=== PATIENT | female | born 1980 | race American Indian/Alaskan Native ===

== ENCOUNTER 2018-03-26 10:45 | Emergency (ER) | payer OTHER ==
[2018-03-26] MEDS ORDERED: NA CHLORIDE 0.9% 1,000 ML ONE (12:16)
[2018-03-26 12:37] LABS: Absolute Monocytes 0.5 K/uL (0.1-1.3); Absolute Neutrophil 2.6 K/uL (1.8-8.0); Basophils % 0.4 % (0-1.3); Eosinophils % 2.3 % (0-4.4); Hematocrit 39.3 % (36.0-45.0); Lymphocytes % 23.1 % (15.3-44.8); MCH 32.4 pg (27.0-35.0); MCV 92.1 fL (80-100); MPV 8.5 fL (7.6-11.3); Monocytes % 11.3 % (3.3-12.3); RBC Red Blood Cell Count 4.26 M/uL (3.86-4.86)
[2018-03-26 12:51] LABS: ALT/SGPT 35 U/L (12-78); AST/SGOT 28 U/L (15-37); Albumin 3.9 g/dL (3.4-5.0); Alkaline Phosphatase 49 U/L (45-117); BUN Blood Urea Nitrogen 9 mg/dL (7-18); Bicarbonate 26 mmol/L (21-32); Bilirubin Direct < 0.1 mg/dL (0-0.2); Bilirubin Total 0.3 mg/dL (0.2-1.0); Glucose Level 100 mg/dL (74-106); Lipase 146 U/L (73-393); Potassium 3.9 mmol/L (3.5-5.1); Protein, Total 7.9 g/dL (6.4-8.2); Sodium Level 141 mmol/L (136-145)
--- NOTE | 2018-03-26 15:51 | RAD REPORT ---
EXAM DESCRIPTION: CTAbdomen Pelvis W Contrast - 03/26/2018 3:43 pm CLINICAL HISTORY: Abdominal pain. Abd pain;GI bleed COMPARISON: <Comparisons> TECHNIQUE: Biphasic CT imaging of the abdomen and pelvis was performed with 100 ml non-ionic IV cont rast. All CT scans are performed using dose optimization technique as appropriate and may include automated exposure control or mA/KV adjustment according to patient size. FINDINGS: The lung bases are clear. The liver, spleen, pancreas, adrenal glands and kidneys are within normal limits. No bowel obstruction, free air, free fluid or abscess. The appendix is normal. No evidence of signi ficant lymphadenopathy. No suspicious bony findings. IMPRESSION: No acute intra-abdominal or pelvic finding.
--- NOTE | 2018-03-26 16:13 | EDPHYS ---
Physician Documentation [facility] Name: Ej Rivas Age: 37 yrs Sex: Female : 1980 Arrival Date: 03/26/2018 Time: 10:47 Bed 7 Private MD: ED Physician Eriberto Land HPI: 03/26 11:50 This 37 yrs old Other Female presents to ER via Ambulatory with complaints of Bloody rh1 Stools. 11:50 The patient presents with abdominal pain that is diffuse. Onset: The symptoms/episode rh1 began/occurred 3 day(s) ago. The symptoms do not radiate. Associated signs and symptoms: Pertinent positives: diarrhea, fever, Pertinent negatives: constipation, dysuria, shortness of breath, vomiting. The symptoms are described as achy, intermittent. Modifying factors: The symptoms are alleviated by nothing, the symptoms are aggravated by food. Severity of pain: At its worst the pain was moderate in the emergency department the pain is unchanged. The patient has not experienced similar symptoms in the past. The patient has not recently seen a physician. She began with diarrhea 3 days ago, up to 20+ episodes, without any today. Intermittent abdominal pain for the past 3 days, overall improved today. She reports + nausea, denies any emesis. She was seen at with onset of symptoms, and had stool studies ordered, which showed + occult blood, and was told today to come to ER for evaluation. She denies seeing any blood in stools, reports initially was brown, and now watery. Fever at 101.4 yesterday, and also noted "hives" yesterday. She had taken a pill earlier that day for her diarrhea, "biofermin" from [place], has taken it in the past without negative reaction. 5 days ago she ate at the [employer], unknown if anyone else with similar symptoms. She denies any SOB, difficulty swallowing, no dizziness/syncope.. 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 - Social history:: Smoking status: Patient/guardian denies using tobacco. - Ebola Screening: : Patient negative for fever greater than or equal to 101.5 degrees Fahrenheit, and additional compatible Ebola Virus Disease symptoms Patient denies exposure to infectious person Patient denies travel to an Ebola-affected area in the 21 days before illness onset No symptoms or risks identified at this time. ROS: 11:50 Cardiovascular: Negative for chest pain, palpitations, and edema, Respiratory: Negative rh1 for shortness of breath, cough, wheezing, and pleuritic chest pain. 11:50 Constitutional: Positive for fever. 11:50 Abdomen/GI: Positive for abdominal pain, nausea, diarrhea, Negative for vomiting, constipation. 11:50 Back: Negative for decreased range of motion, pain at rest, pain with movement, radiated pain. 11:50 Skin: Positive for rash, not ongoing at this time, Negative for cellulitis. 11:50 Neuro: Negative for altered mental status, numbness, syncope, near syncope, tingling, weakness. Exam: 11:50 Constitutional: This is a well developed, well nourished patient who is awake, alert, rh1 and in no acute distress. Head/Face: Normocephalic, atraumatic. Neck: Trachea midline, and no cervical lymphadenopathy. Supple, full range of motion without nuchal rigidity. No Meningismus. Chest/axilla: Normal chest wall appearance and motion. Nontender with no deformity. No lesions are appreciated. Cardiovascular: Regular rate and rhythm with a normal S1 and S2. No gallops, murmurs, or rubs. No JVD. No pulse deficits. Respiratory: Lungs have equal breath sounds bilaterally, clear to auscultation. No rales, rhonchi or wheezes noted. No increased work of breathing. 11:50 Back: No spinal tenderness. No costovertebral tenderness. Full range of motion. Skin: Warm, dry with normal turgor. Normal color with no rashes, no lesions, and no evidence of cellulitis. MS/ Extremity: Pulses equal, no cyanosis. Neurovascular intact. Full, normal range of motion. 11:50 Abdomen/GI: Inspection: abdomen appears normal, bruising, is not seen, distension, is not seen, Bowel sounds: normal, in all quadrants, active, all quadrants, Palpation: abdomen is soft and non-tender, in all quadrants, Rectal exam: Stool: guaiac negative, very minimal stool for guiac, hemorrhoid(s), are not appreciated, mass, is not appreciated, swelling, is not appreciated, tenderness, is not appreciated, Indicators: McBurney's point is not tender, Shell's sign is negative, Rovsing's sign is negative, Liver: no appreciated palpable abnormalities. 11:50 Neuro: Orientation: is normal, to person, place \\T\\ time. Mentation: is normal, lucid, able to follow commands, Motor: is normal, moves all fours, strength is 5/5 in all extremities, Sensation: is normal, no obvious gross deficits, numbness, is not appreciated, tingling, is not appreciated, Gait: is steady, at a normal pace, without difficulty. Vital Signs: 11:21 BP 111 / 70; Pulse 87; Resp 16; Temp 97.9; Pulse Ox 100% ; Weight 55 kg (R); Height 5 sg ft. 1 in. (155 cm) (R); Pain 0/10; 16:04 BP 116 / 71; Pulse 74; Resp 16; Pulse Ox 98% on R/A; la1 11:21 Body Mass Index 22.89 (55.00 kg, 155 cm) sg MDM: 11:50 Patient medically screened. rh1 11:50 ED course: occult blood positive. rh1 16:10 Data reviewed: vital signs, nurses notes, lab test result(s), radiologic studies, CT rh1 scan, and as a result, I will discharge patient. Data interpreted: Pulse oximetry: on room air is 98 %. Interpretation: normal. 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 ED course: She has had no further episodes of abdominal pain, and no diarrhea today. Pending stool ova/parasites and culture, c.diff. 03/26 12:07 Order name: Basic Metabolic Panel; Complete Time: 12:52 rh1 03/26 12:07 Order name: CBC with Diff; Complete Time: 12:47 rh1 03/26 12:07 Order name: Creatinine for Radiology; Complete Time: 14:08 [facility] 03/26 12:07 Order name: Hepatic Function; Complete Time: 12:52 1 03/26 12:07 Order name: Lipase; Complete Time: 12:52 03/26 12:07 Order name: Guiac [facility] 03/26 12:07 Order name: IV Saline Lock; Complete Time: 12:20 1 03/26 12:07 Order name: Labs collected and sent; Complete Time: 12:20 [facility] 03/26 12:07 Order name: Urine Dipstick-Ancillary (obtain specimen); Complete Time: 12:25 [facility] 03/26 12:09 Order name: CDIFF [facility] 03/26 12:25 Order name: CT Abd/Pelvis - W/Contrast; Complete Time: 15:54 [facility] 03/26 12:26 Order name: Urine Dipstick--Ancillary (enter results) 03/26 12:26 Order name: Urine --Ancillary (enter results) eb 03/26 12:07 Order name: Urine Test (obtain specimen); Complete Time: 12:25 [facility] Administered Medications: 12:20 Drug: NS 0.9% 1000 ml Route: IV; Rate: 1 bolus; Site: left antecubital; la1 Disposition: 18:36 Co-signature as Attending Physician, Eriberto Land MD. Disposition: 03/26/18 16:13 Discharged to Home. Impression: Other abdominal pain, Diarrhea, unspecified. - Condition is Stable. - Discharge Instructions: Abdominal Pain, Adult, Food Choices to Help Relieve Diarrhea, Adult, Diarrhea, Adult. - Medication Reconciliation Form, Thank You Letter, Antibiotic Education, Prescription Opioid Use form. - Follow up: Vladimir Hale MD; When: 1 - 2 days; Reason: Further diagnostic work-up, Recheck today's complaints, Continuance of care. Follow up: Emergency Department; When: As needed; Reason: Fever > 102 F, If symptoms return, Trouble breathing, Worsening of condition. Follow up: Private Physician; When: 1 - 2 days; Reason: Recheck today's complaints, Continuance of care, Re-evaluation by your physician. - Problem is new. - Symptoms have improved. Signatures: Dispatcher [employer] Robert Enciso RN RN Marlin Hernandez RN RN Hola Smith, RN RN la1 Kathy Roldan, CATERING TRUCK OPERATOR CATERING TRUCK OPERATOR rh1 Eriberto Land MD MD gs Corrections: (The following items were deleted from the chart) 16:48 16:13 03/26/2018 16:13 Discharged to Home. Impression: Other abdominal pain; Diarrhea, iw unspecified. Condition is Stable. Forms are Medication Reconciliation Form, Thank You Letter, Antibiotic Education, Prescription Opioid Use. Follow up: Vladimir Hale; When: 1 - 2 days; Reason: Further diagnostic work-up, Recheck today's complaints, Continuance of care. Follow up: Emergency Department; When: As needed; Reason: Fever > 102 F, If symptoms return, Trouble breathing, Worsening of condition. Follow up: Private Physician; When: 1 - 2 days; Reason: Recheck today's complaints, Continuance of care, Re-evaluation by your physician. Problem is new. Symptoms have improved. rh1
--- NOTE | 2018-03-26 16:13 | ER ---
Nurse's Notes [facility] Name: Ej Rivas Age: 37 yrs Sex: Female : 1980 Arrival Date: 03/26/2018 Time: 10:47 Bed 7 Private MD: Diagnosis: Other abdominal pain;Diarrhea, unspecified Presentation: 03/26 11:19 Presenting complaint: Patient states: Diarrhea for 2-3 days and had the stool tested by sg her doctor, test positive for blood so is sent here to be seen for blood in stool. pt reports fever yesterday morning but none since then, reports no diarrhea today, denies N/V/D. Transition of care: patient was not received from another setting of care. Onset of symptoms was March 26, 2018. Risk Assessment: Do you want to hurt yourself or someone else? Patient reports no desire to harm self or others. Initial Sepsis Screen: Does the patient meet any 2 criteria? No. Patient's initial sepsis screen is negative. Does the patient have a suspected source of infection? No. Patient's initial sepsis screen is negative. Care prior to arrival: None. 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 - Social history:: Smoking status: Patient/guardian denies using tobacco. - Ebola Screening: : Patient negative for fever greater than or equal to 101.5 degrees Fahrenheit, and additional compatible Ebola Virus Disease symptoms Patient denies exposure to infectious person Patient denies travel to an Ebola-affected area in the 21 days before illness onset No symptoms or risks identified at this time. Screenin:01 Abuse screen: Denies threats or abuse. Nutritional screening: No deficits noted. la1 Tuberculosis screening: No symptoms or risk factors identified. Fall Risk None identified. Assessment: 12:05 General: Appears in no apparent distress. Behavior is calm, cooperative. Pain: Denies la1 pain. Neuro: Level of Consciousness is awake, alert, obeys commands, Oriented to person, place, time, situation. Cardiovascular: Capillary refill < 3 seconds Patient's skin is warm and dry. Respiratory: Airway is patent Respiratory effort is even, unlabored. GI: Abdomen is round non-distended, Bowel sounds present X 4 quads. GI: Abd is soft and non tender X 4 quads. : No signs and/or symptoms were reported regarding the genitourinary system. 13:05 Reassessment: Patient appears in no apparent distress at this time. No changes from la1 previously documented assessment. Patient and/or family updated on plan of care and expected duration. Pain level reassessed. 15:26 Reassessment: Patient appears in no apparent distress at this time. No changes from la1 previously documented assessment. Patient and/or family updated on plan of care and expected duration. Pain level reassessed. Vital Signs: 11:21 BP 111 / 70; Pulse 87; Resp 16; Temp 97.9; Pulse Ox 100% ; Weight 55 kg (R); Height 5 sg ft. 1 in. (155 cm) (R); Pain 0/10; 16:04 BP 116 / 71; Pulse 74; Resp 16; Pulse Ox 98% on R/A; la1 11:21 Body Mass Index 22.89 (55.00 kg, 155 cm) sg ED Course: 10:47 Patient arrived in ED. mr 10:53 Kathy Roldan NP is PHCP. rh1 10:53 Eriberto Land MD is Attending Physician. rh1 11:20 Triage completed. sg 11:20 Arm band placed on. sg 11:41 Hola Marie, RN is Primary Nurse. la1 12:01 Bed in low position. Call light in reach. Side rails up X 1. la1 12:04 Served as a sprayer insecticide during rectal exam. aj 12:20 Inserted saline lock: 22 gauge in left antecubital area, using aseptic technique. Blood la1 collected. 15:43 CT completed. Patient tolerated procedure well. Patient moved to CT via stretcher. Patient moved back from CT. 15:43 CT Abd/Pelvis - W/Contrast In Process Unspecified. EDMS 16:12 Vladimir aHle MD is Referral Physician. rh1 16:48 IV discontinued, intact, bleeding controlled, No redness/swelling at site. Pressure iw dressing applied. Administered Medications: 12:20 Drug: NS 0.9% 1000 ml Route: IV; Rate: 1 bolus; Site: left antecubital; la1 Outcome: 16:13 Discharge ordered by . rh1 16:48 Discharged to home ambulatory, with family. iw 16:48 Condition: good 16:48 Discharge instructions given to patient, family, Instructed on discharge instructions, follow up and referral plans. Demonstrated understanding of instructions, follow-up care. 16:48 Patient left the ED. iw Signatures: Dispatcher [employer] EDRobert Mitchell RN RN sg Myers, Amanda RN Merry Valdivia, Marlin Orta RN RN iw Attema, Lee, RN RN la1 Jones, Rachel, NP CAREER MANAGER 1
[2018-03-26 18:08] LABS: Urine Blood 1+ (NEG); Urine Glucose NEGATIVE (NEG); Urine Protein NEGATIVE (NEG)
== END 2018-03-26 16:48 | disposition home or self-care (01) ==
LOC: ER 10:45
DX: R19.7 Diarrhea, unspecified (principal)
CPT/HCPCS: 36415; 74177; 80048; 80076; 81003; 81025; 83690; 85025; 87493; 99284; J7030; Q9967

== ENCOUNTER 2018-09-03 03:27 | Emergency (ER) | payer OTHER ==
[2018-09-03] MEDS ORDERED: ACETAMINOPHEN 500 MG TAB ONE (04:14)
[2018-09-03] MEDS ORDERED: IPRATROPIUM BROM 0.5MG/2.5ML ONE (04:38)
[2018-09-03] MEDS ORDERED: ALBUTEROL 2.5 MG/3 ML NEB SOL ONE (04:38)
--- NOTE | 2018-09-03 05:15 | EDPHYS ---
Physician Documentation [facility] Name: Ej Rivas Age: 37 yrs Sex: Female : 1980 Arrival Date: 09/03/2018 Time: 03:31 Bed 14 Private MD: ED Physician Luis Antonio Rhodes HPI: 09/03 05:29 This 37 yrs old Other Female presents to ER via Ambulatory with complaints of Cough, tw4 Cold Symptoms. 05:29 The patient or guardian reports cough. Onset: The symptoms/episode began/occurred tw4 today. Severity of symptoms: At their worst the symptoms were mild, in the emergency department the symptoms are unchanged. Modifying factors: The symptoms are alleviated by nothing, the symptoms are aggravated by nothing. The patient has not experienced similar symptoms in the past. 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 jb4 Historical: - Allergies: 03:32 No Known Allergies; jb4 - Home Meds: 03:32 Amoxicillin Oral [Active]; Delsym Cough+Cold Daytime oral oral [Active]; jb4 - PMHx: 03:32 Miscarriage; jb4 - PSHx: 03:32 D \T\ C; jb4 - Immunization history:: Adult Immunizations up to date, Flu vaccine is up to date. - Social history:: Smoking status: Patient/guardian denies using tobacco, Patient/guardian denies using alcohol. - Ebola Screening: : No symptoms or risks identified at this time. ROS: 05:29 Constitutional: Negative for fever, chills, and weight loss, Eyes: Negative for injury, tw4 pain, redness, and discharge, Cardiovascular: Negative for chest pain, palpitations, and edema, Abdomen/GI: Negative for abdominal pain, nausea, vomiting, diarrhea, and constipation, Back: Negative for injury and pain. 05:29 Respiratory: Positive for cough, with clear sputum. Exam: 05:29 Constitutional: This is a well developed, well nourished patient who is awake, alert, tw4 and in no acute distress. Head/Face: Normocephalic, atraumatic. Chest/axilla: Normal chest wall appearance and motion. Nontender with no deformity. No lesions are appreciated. Cardiovascular: Regular rate and rhythm with a normal S1 and S2. No gallops, murmurs, or rubs. Normal PMI, no JVD. No pulse deficits. Respiratory: Lungs have equal breath sounds bilaterally, clear to auscultation and percussion. No rales, rhonchi or wheezes noted. No increased work of breathing, no retractions or nasal flaring. Abdomen/GI: Soft, non-tender, with normal bowel sounds. No distension or tympany. No guarding or rebound. No evidence of tenderness throughout. Back: No spinal tenderness. No costovertebral tenderness. Full range of motion. MS/ Extremity: Pulses equal, no cyanosis. Neurovascular intact. Full, normal range of motion. Neuro: Awake and alert, GCS 15, oriented to person, place, time, and situation. Cranial nerves II-XII grossly intact. Motor strength 5/5 in all extremities. Sensory grossly intact. Cerebellar exam normal. Normal gait. Vital Signs: 03:32 BP 119 / 77; Pulse 82; Resp 20; Temp 100.5(O); Pulse Ox 98% on R/A; Weight 56 kg (R); jb4 Height 5 ft. 5 in. (165.10 cm) (R); Pain 8/10; 04:30 BP 104 / 59; Pulse 72; Resp 18; Pulse Ox 100% on Nebulizer Mask; jb4 05:00 BP 106 / 55; Pulse 66; Resp 18; Temp 98.6(O); Pulse Ox 100% on R/A; jb4 03:32 Body Mass Index 20.54 (56.00 kg, 165.10 cm) jb4 MDM: 03:50 Patient medically screened. tw4 05:29 Differential Diagnosis: Bronchitis Influenza Upper Respiratory Infection. Data tw4 reviewed: vital signs, nurses notes. Data interpreted: Pulse oximetry:. Counseling: I had a detailed discussion with the patient and/or guardian regarding: the historical points, exam findings, and any diagnostic results supporting the discharge/admit diagnosis. Medication response: Response to treatment: the patient's symptoms have resolved after treatment, and as a result, I will discharge patient. Special discussion: I discussed with the patient/guardian in detail that at this point there is no indication for admission to the hospital. It is understood, however, that if the symptoms persist or worsen the patient needs to return immediately for re-evaluation. 09/03 03:50 Order name: Flu tw4 Administered Medications: 03:50 Drug: Tylenol 1000 mg Route: PO; jb4 05:09 Follow up: Response: No adverse reaction; Temperature is decreased jb4 04:30 Drug: Albuterol 2.5 mg Route: Inhalation; jb4 05:00 Follow up: Response: No adverse reaction jb4 04:30 Drug: AtroVENT Aerosol 0.5 mg Route: Inhalation; jb4 05:15 Follow up: Response: No adverse reaction jb4 Disposition: 09/03/18 05:14 Discharged to Home. Impression: Acute bronchitis. - Condition is Stable. - Discharge Instructions: Acute Bronchitis, [id number]. - Prescriptions for Albuterol Sulfate 90 mcg/actuation - inhale 1-2 puff by INHALATION route every 4-6 hours; 1 Inhaler. - Medication Reconciliation Form, Thank You Letter, Antibiotic Education, Prescription Opioid Use form. - Follow up: Private Physician; When: Upon discharge from the Emergency Department; Reason: If symptoms return, Recheck today's complaints, Continuance of care. - Problem is new. - Symptoms have improved. Signatures: Dispatcher [employer] Jeovanny Milton RN RN jb4 Luis Antonio Rhodes MD MD tw4 Corrections: (The following items were deleted from the chart) 03:55 03:32 PMHx: None; jb4 jb4 03:55 03:32 PSHx: None; 4 jb4 05:32 05:14 09/03/2018 05:14 Discharged to Home. Impression: Acute bronchitis. Condition is jb4 Stable. Forms are Medication Reconciliation Form, Thank You Letter, Antibiotic Education, Prescription Opioid Use. Follow up: Private Physician; When: Upon discharge from the Emergency Department; Reason: If symptoms return, Recheck today's complaints, Continuance of care. Problem is new. Symptoms have improved. tw4
--- NOTE | 2018-09-03 05:15 | ER ---
Nurse's Notes [facility] Name: Ej Rivas Age: 37 yrs Sex: Female : 1980 Arrival Date: 09/03/2018 Time: 03:31 Bed 14 Private MD: Diagnosis: Acute bronchitis Presentation: 09/03 03:32 Presenting complaint: states: She has been coughing for about a week, and jb4 tonight is having difficulty breathing. 03:32 Transition of care: patient was not received from another setting of care. Onset of jb4 symptoms was August 27, 2018. Risk Assessment: Do you want to hurt yourself or someone else? Patient reports no desire to harm self or others. Initial Sepsis Screen: Does the patient meet any 2 criteria? No. Patient's initial sepsis screen is negative. Does the patient have a suspected source of infection? No. Patient's initial sepsis screen is negative. Care prior to arrival: None. 03:32 Method Of Arrival: Ambulatory jb4 03:32 Acuity: EDWIN 3 jb4 Triage Assessment: 03:32 General: Appears uncomfortable, Behavior is calm, cooperative, appropriate for age, Pt jb4 reports being 7 weeks. .. Pain: Complains of pain in throat Pain does not radiate. Pain currently is 8 out of 10 on a pain scale. Quality of pain is described as scratching. Pain began 1 week ago. Is intermittent. EENT: Throat is clear is reddened. Neuro: Level of Consciousness is awake, alert, obeys commands, Oriented to person, place, time, situation. Cardiovascular: Patient's skin is warm and dry. Respiratory: Reports shortness of breath with coughing. cough that is non-productive, Airway is patent Respiratory effort is even, unlabored, Respiratory pattern is regular, symmetrical, Breath sounds are clear bilaterally. GI: No signs and/or symptoms were reported involving the gastrointestinal system. : No signs and/or symptoms were reported regarding the genitourinary system. Derm: Skin is intact, Skin is pink, warm \T\ dry. Musculoskeletal: Circulation, motion, and sensation intact. PHYSICAL THERAPY RESIDENT: 03:32 Pt reports being 7 weeks . jb4 Historical: - Allergies: 03:32 No Known Allergies; jb4 - Home Meds: 03:32 Amoxicillin Oral [Active]; Delsym Cough+Cold Daytime oral oral [Active]; jb4 - PMHx: 03:32 Miscarriage; jb4 - PSHx: 03:32 D \T\ C; jb4 - Immunization history:: Adult Immunizations up to date, Flu vaccine is up to date. - Social history:: Smoking status: Patient/guardian denies using tobacco, Patient/guardian denies using alcohol. - Ebola Screening: : No symptoms or risks identified at this time. Screenin:32 Abuse screen: Denies threats or abuse. Nutritional screening: No deficits noted. jb4 Tuberculosis screening: No symptoms or risk factors identified. Fall Risk None identified. Assessment: 03:32 General: see triage assessment. jb4 04:36 Reassessment: Patient appears in no apparent distress at this time. Patient and/or jb4 family updated on plan of care and expected duration. Pain level reassessed. Patient is alert, oriented x 3, equal unlabored respirations, skin warm/dry/pink. 05:28 Reassessment: Patient appears in no apparent distress at this time. Patient and/or jb4 family updated on plan of care and expected duration. Pain level reassessed. Patient is alert, oriented x 3, equal unlabored respirations, skin warm/dry/pink. Vital Signs: 03:32 BP 119 / 77; Pulse 82; Resp 20; Temp 100.5(O); Pulse Ox 98% on R/A; Weight 56 kg (R); jb4 Height 5 ft. 5 in. (165.10 cm) (R); Pain 8/10; 04:30 BP 104 / 59; Pulse 72; Resp 18; Pulse Ox 100% on Nebulizer Mask; jb4 05:00 BP 106 / 55; Pulse 66; Resp 18; Temp 98.6(O); Pulse Ox 100% on R/A; jb4 03:32 Body Mass Index 20.54 (56.00 kg, 165.10 cm) 4 ED Course: 03:31 Patient arrived in ED. es 03:32 Arm band placed on left wrist. jb4 03:32 Patient has correct armband on for positive identification. Bed in low position. Call [facility] light in reach. Side rails up X 1. Pulse ox on. NIBP on. 03:32 Adult fever workup initiated per nursing protocol. jb4 03:44 Jeovanny Bradford, RN is Primary Nurse. jb4 03:47 Triage completed. jb4 03:50 Luis Antonio Rhodes MD is Attending Physician. tw4 03:50 Flu and/or RSV swab sent to lab. jb4 05:00 No provider procedures requiring assistance completed. Patient did not have IV access jb4 during this emergency room visit. Administered Medications: 03:50 Drug: Tylenol 1000 mg Route: PO; jb4 05:09 Follow up: Response: No adverse reaction; Temperature is decreased jb4 04:30 Drug: Albuterol 2.5 mg Route: Inhalation; jb4 05:00 Follow up: Response: No adverse reaction jb4 04:30 Drug: AtroVENT Aerosol 0.5 mg Route: Inhalation; jb4 05:15 Follow up: Response: No adverse reaction jb4 Outcome: 05:14 Discharge ordered by . tw4 05:32 Discharged to home ambulatory, with family. jb4 05:32 Condition: stable 05:32 Discharge instructions given to patient, family, Instructed on discharge instructions, follow up and referral plans. medication usage, Demonstrated understanding of instructions, follow-up care, medications, Prescriptions given X 1. 05:32 Patient left the ED. jb4 Signatures: Sonali Beal Taylor RN RN tl2 Jeovanny Bradford RN RN jb4 Luis Antonio Rhodes MD MD tw4 Corrections: (The following items were deleted from the chart) 03:55 03:32 PMHx: None; jb4 jb4 03:55 03:32 PSHx: None; jb4 jb4 03:59 03:59 Adult fever workup initiated per nursing protocol. tl2 tl2
== END 2018-09-03 05:32 | disposition home or self-care (01) ==
LOC: ER 03:27
DX: J20.9 Acute bronchitis, unspecified (principal); Z3A.01 Less than 8 weeks gestation of pregnancy
CPT/HCPCS: 87804; 99284

== ENCOUNTER 2019-04-20 13:41 | Inpatient (IN) | payer OTHER ==
--- NOTE | 2019-04-20 16:18 | RAD REPORT ---
EXAM DESCRIPTION: US - Biophysical Profile - 04/20/2019 3:41 pm CLINICAL HISTORY: COMPARISON: April 17, 2019 FINDINGS: Single live into is in cephalic presentation. Cardiac activity 148 beats per minute. The placenta is fundal. Biophysical profile Breathing 2 movement 2 tone 2 fluid 2 The amniotic fluid index equals 7.1 cm . The greatest pocket of fluid 2.4 centimeters. Cervix measures 3.7 centimeters IMPRESSION: Biophysical profile 02/01
[2019-04-20] MEDS ORDERED: Ringers Lactate 1,000 ML IV PRN (16:35)
[2019-04-20] MEDS ORDERED: BUTORPHANOL 1 MG/ML INJ IV PRN (16:35)
[2019-04-20] MEDS ORDERED: PROMETHAZINE 25 MG/ML VIAL IM PRN (16:35)
[2019-04-20] MEDS ORDERED: CARBOPROST TROME 250 MCG/ML IM PRN (16:35)
[2019-04-20] MEDS ORDERED: METHYLERGONOVINE 0.2MG/ML AMP IM PRN (16:35)
[2019-04-20 16:57] LABS: Absolute Lymphocytes (CBC) 1.4 K/uL (0.7-4.9); Basophils % 0.4 % (0-1.3); Hematocrit 33.9 % (36.0-45.0); Lymphocytes % 14.4 % (15.3-44.8); MPV 8.8 fL (7.6-11.3); RBC Red Blood Cell Count 3.66 M/uL (3.86-4.86)
[2019-04-20 17:00] VITALS: BMI 25.9
[2019-04-20] MEDS ORDERED: OXYTOCIN/LR 20 UNIT/1,000 ML BAG IV SCH ×2 (17:00→22:00)
[2019-04-20] MEDS ORDERED: Ringers Lactate 1,000 ML IV SCH (17:00)
[2019-04-20] MEDS ORDERED: ROPIVACAINE HCL 100 ML IV ONE (17:15)
[2019-04-20] MEDS ORDERED: ROPIVACAINE HCL 20 ML ONE (17:15)
[2019-04-20] MEDS ORDERED: FENTANYL CITR 100 MCG/2 ML IV ONE (17:26)
[2019-04-20] MEDS ORDERED: ROPIVACAINE HCL 0.2% 20ML AMP IV ONE (17:26)
[2019-04-20] MEDS ORDERED: ROPIVACAINE HCL 100 ML IV PRN (17:26)
[2019-04-20] MEDS ORDERED: LIDOCAINE 1% MPF 30 ML VIAL ONE (20:31)
[2019-04-20 20:43] LABS: RPR (Rapid Plasma Reagin) NON-REACT (NON-REACT)
[2019-04-20] MEDS ORDERED: DIPHENHYDRAMINE 25 MG TAB/CAP PO PRN (21:03)
[2019-04-20] MEDS ORDERED: Oxycodone HCl/Acetaminophen 1 TAB TAB PO PRN (21:03)
[2019-04-20] MEDS ORDERED: ACETAMINOPHEN 500 MG TAB PO PRN (21:03)
[2019-04-20] MEDS ORDERED: BISACODYL 10 MG RECTAL SUPP RECT PRN (21:03)
[2019-04-20] MEDS ORDERED: DOCUSATE NA/SENNA CONC 1 TAB PO PRN (21:03)
--- NOTE | 2019-04-21 00:53 | PN ---
The patient is now completely dilated +1 to +2 station, but she is completely numb, cannot feel her c ontractions whatsoever, really does not have the urge to push yet. We will turn the maintenance dose from 10 to 8 and wait a little bit for the baby to come down and then when patient starts feeling pr essure, I think she will be able to push more effectively. HUMBLE/DAVID Voice ID: [id number] Report ID: [id number]
--- NOTE | 2019-04-21 03:48 | HP ---
Date of Admission: 04/20/2019 This is a 38-year-old 2, para 0, 1 miscarriage, 38 weeks 1 day, gestational diabetic, admitti ng good control. Rh positive, immune to Rubella. Negative beta strep screen. Followed antepartum b y Dr. Booker. Came in today for irregular contractions. Was sent for a biophysical profile. At the time she first came in, she was 1 to 1.5 cm. When she came back from the biophysical profile, pa tient was 4 to 5. Within the next 20 minutes, she is now 6 to 7, 100% effaced, vertex, bloody show, rupture of membranes, clear fluid. FHTs normal and reactive. We are hydrating her. She wishes an e pidural, but with anesthesia requirement of getting CBC and platelet count and hydration and as fast as she is going, she may not have time. We will certainly notify anesthesia department and see what we can do. Admission talk given. Anticipate delivery relatively soon. HUMBLE/DAVID Voice ID: [id number]
--- NOTE | 2019-04-21 07:49 | OP ---
Surgeon: Joo Avila MD This is a 38-year-old 2, para 0, 38 weeks 1 day, came in in active labor, 4 to 5 cm on admiss ion. Beta strep negative. Rh positive, immune to Rubella. Received epidural anesthesia at approxim ately 7 to 8 cm. It was extremely numbing at first and it was reduced from 10 to 6 cc an hour and th e patient could push effectively at that point. After approximately 30 minutes, second stage, vagina l delivery of a 6-pound 14-ounce male infant, Apgars 9 and 9. Second degree episiotomy, repaired wit h 2-0 chromic and local infiltration, although patient was still numb from the epidural. [place] holm of the placenta, which was inspected and noted to be intact and normal. Approximately 350 cc blood loss. Patient tolerated all procedures well. Final Diagnoses: Term intrauterine , 38 weeks 1 day, vaginal delivery, epidural anesthesia. HUMBLE/DAVID Voice ID: [id number] Report ID: [id number]
[2019-04-21] MEDS: IBUPROFEN 200 MG TAB PO PRN ×2 (09:24→17:57)
[2019-04-21] MEDS: Oxycodone HCl/Acetaminophen 1 TAB TAB PO PRN (12:28)
--- NOTE | 2019-04-21 12:55 | PN ---
This morning, patient doing well. Output is good. Vital signs stable. Other than being sore. She has no complaints or problems. Full dismissal summary given the patient's will go over it ag ain tomorrow. Tdap suggested strongly for both patient and . No post epidural problems. Pro bably home tomorrow. HUMBLE/DAVID Voice ID: [id number] Report ID: [id number]
[2019-04-22] MEDS: Oxycodone HCl/Acetaminophen 1 TAB TAB PO PRN ×2 (00:04→07:49)
[2019-04-22] MEDS ORDERED: INFLUENZA VACCINE (for 3y+) 0.5 ML DOSE IMVAC ONE (08:10)
[2019-04-22 08:39] VITALS: BP 106/69; TEMP 97.4
--- NOTE | 2019-04-23 06:03 | DS ---
Date of Discharge: 04/22/2019 This is a 38-year-old 2, para [address] Booker followed antepartum without complica tions. Rh positive, immune to Rubella. Negative beta strep screen. Admitted in active labor. Subs equently, delivered of an estimated 7-pound male , Apgars 9 and 9. Epidural anesthesia. Secon d degree episiotomy for delivery. Repaired with 2-0 chromic. Schultze delivery of the placenta. Es timated blood loss 400 mL or less. ; afebrile, ambulating and voiding. Lochia is normal. Tdap and flu shots discussed. No post epidural problems. Dismissed at patient's request with trama dol for analgesia. She knows this goes through the breast milk. She will call Dr. Booker's offic e on Tuesday for further instructions. Final Diagnoses: Term intrauterine at 38+ weeks. Vaginal delivery. Epidural anesthesia. HUMBLE/DAVID Voice ID: [id number] Report ID: [id number]
[2019-04-25 05:29] LABS: HBsAG Nonreactive (Nonreactive)
== END 2019-04-22 10:35 | disposition home or self-care (01) | DRG 807 ==
LOC: L&D 13:41 → 2ND-WC 15:55
PROVIDERS: ADMIT Specialist; ATTEND Specialist
PROC: 10907ZC Drainage of Amniotic Fluid, Therapeutic from Products of Conception, Via Natural or Artificial Opening (ICD-10-PCS; principal; 2019-04-20)
PROC: 10E0XZZ Delivery of Products of Conception, External Approach (ICD-10-PCS; 2019-04-20)
PROC: 0W8NXZZ Division of Female Perineum, External Approach (ICD-10-PCS; 2019-04-20)
DX: O24.429 Gestational diabetes mellitus in childbirth, unspecified control (principal); Z37.0 Single live birth; Z3A.38 38 weeks gestation of pregnancy; Z23 Encounter for immunization
CPT/HCPCS: 36415; 76819; 85025; 86592; 86901; 87340; 90471; 99218; J2210; J2590; J2795; J3010; J7120; Q2035

== ENCOUNTER 2020-06-04 22:09 | Inpatient (IN) | payer OTHER ==
[2020-06-05] MEDS ORDERED: BUTORPHANOL 1 MG/ML INJ IV PRN (06:41)
[2020-06-05] MEDS ORDERED: METHYLERGONOVINE 0.2MG/ML AMP IM PRN ×2 (06:41→12:53)
[2020-06-05] MEDS ORDERED: Ringers Lactate 1,000 ML IV PRN (06:41)
[2020-06-05] MEDS ORDERED: CARBOPROST TROME 250 MCG/ML IM PRN ×2 (06:41→12:53)
[2020-06-05] MEDS ORDERED: PROMETHAZINE INJ 25 MG/ML AMP IV PRN (06:41)
[2020-06-05] MEDS ORDERED: OXYTOCIN/LR 20 UNITS/1,000 ML BAG IV SCH (07:00)
[2020-06-05] MEDS ORDERED: Ringers Lactate 1,000 ML IV SCH (07:00)
[2020-06-05 07:15] VITALS: BMI 3880.6
[2020-06-05 07:16] LABS: Absolute Lymphocytes (CBC) 1.3 K/uL (0.7-4.9); Basophils % 0.4 % (0-1.3); Hematocrit 33.8 % (36.0-45.0); Lymphocytes % 12.7 % (15.3-44.8); MPV 8.4 fL (7.6-11.3); RBC Red Blood Cell Count 3.41 M/uL (3.86-4.86)
--- NOTE | 2020-06-05 07:44 | P.PN ---
Date of Service: 06/05/20 AROM by placement of FSE, clear fluid noted, pitocin induction begun, reactive fht's
[2020-06-05] MEDS ORDERED: FENTANYL/BUPIVACAINE/NS/PF 200 MCG/100 ML BAG EP PRN (08:14)
[2020-06-05] MEDS ORDERED: BUPIVACAINE 0.25% PF 10 ML VIAL IJ PRN (08:14)
[2020-06-05] MEDS ORDERED: ROPIVACAINE HCL 0.2% 20ML AMP IV ONE (08:14)
[2020-06-05] MEDS ORDERED: FENTANYL CITR 100 MCG/2 ML IV ONE (08:14)
[2020-06-05 09:49] LABS: Blood Morphology Comment NOT SEEN (NOT SEEN); Platelet Estimate ADEQ
[2020-06-05 11:25] LABS: Urine Appearance CLEAR; Urine Bilirubin NEGATIVE (NEG); Urine Blood NEGATIVE (NEG); Urine Color YELLOW; Urine Glucose NEGATIVE (NEG); Urine Protein NEGATIVE (NEG); Urine Urobilinogen 0.2 mg/dL (0.2-1.0); Urine pH 6.5 (5.0-7.0)
[2020-06-05] MEDS ORDERED: LIDOCAINE 1% MPF 30 ML VIAL ONE (11:39)
[2020-06-05 12:23] LABS: Urine Bacteria <20 /HPF (<20); Urine RBC NONE SEEN /HPF (NONE SEEN)
[2020-06-05] MEDS ORDERED: ONDANSETRON 4 MG (ODT) TAB PO PRN (12:53)
[2020-06-05] MEDS ORDERED: METHYLERGONOVINE 0.2 MG TAB PO PRN (12:53)
--- NOTE | 2020-06-05 12:57 | P.BOP ---
Preoperative diagnosis: 38+ wk , AMA, GDM Postoperative diagnosis: Same, viable female Primary procedure: SCVD Secondary procedure: Repair of second degree perineal laceration Estimated blood loss: <100ml Anesthesia: epidura; Complications: None Transferred to: Other (272) Condition: Good
[2020-06-05] MEDS: OXYTOCIN/LR 20 UNIT/1,000 ML BAG IV SCH (13:00)
[2020-06-05] MEDS ORDERED: Ringers Lactate 2,000 ML IV ONE (13:32)
[2020-06-05] MEDS: Oxycodone HCl/Acetaminophen 1 TAB TAB PO PRN (17:59)
[2020-06-06] MEDS: IBUPROFEN 600 MG TAB PO PRN ×2 (01:10→10:30)
[2020-06-06 03:40] LABS: RPR (Rapid Plasma Reagin) NON-REACT (NON-REACT)
[2020-06-06] MEDS: OXYTOCIN/LR 20 UNIT/1,000 ML BAG IV SCH (05:00)
[2020-06-06 06:01] LABS: Absolute Lymphocytes (CBC) 1.7 K/uL (0.7-4.9); Basophils % 0.5 % (0-1.3); Hematocrit 35.7 % (36.0-45.0); Lymphocytes % 15.2 % (15.3-44.8); MPV 8.7 fL (7.6-11.3); RBC Red Blood Cell Count 3.55 M/uL (3.86-4.86)
[2020-06-06] MEDS ORDERED: Ringers Lactate 1,000 ML IV ONE (07:20)
--- NOTE | 2020-06-06 08:09 | DS ---
Final Hospital Discharge Diagnoses: 38+ week , delivered, advanced maternal age, gestationa l diabetes mellitus. Complications: None. Procedures: Artificial rupture of membranes, Pitocin induction of labor, placement of epidural parker ter, spontaneous controlled vaginal delivery of viable female , repair of second-degree perinea l laceration. Hospital Course: Patient is a 39-year-old [place] female, 3, para 1-0-1-1, at 38+ w eeks gestation, admitted for induction and secondary to advanced maternal age and gestational diabete s. She underwent uncomplicated labor and delivery, delivered with epidural anesthesia, 7 pounds 1 ou nce female , 9 and 9. She was dismissed on the first day with a fasting blood sugar on the day of dismissal of 80. She was to continue to take her blood sugars at home and repor t any significant elevations, but not to continue the glyburide. She was on antepartum. Lab work ob tained during this hospital stay included an admission hemoglobin and hematocrit of 11.7 and 33.8, di smissal 12.0 and 35.7. She had an 80 glucose on the morning of dismissal. Negative urinalysis. Non reactive RPR. COVID test negative. Hepatitis B pending. She is Rh positive blood type. She is dis missed to continue taking her iron and vitamins with Tylenol No.3, #10 for pain relief. VICKEY/DAVID Voice ID: [id number] Report ID: [id number]
[2020-06-06 09:01] VITALS: TEMP 97.8
[2020-06-06] MEDS: Oxycodone HCl/Acetaminophen 1 TAB TAB PO PRN (12:30)
[2020-06-06 17:59] VITALS: BP 100/65
--- NOTE | 2020-06-11 15:14 | DN ---
Surgeon: Demetrio Booker MD Ms. Rivas is a 39-year-old Thai female, 3, para 1-0-1-1, at approximately 38+ weeks gestation. She is admitted for induction of labor secondary to advanced maternal age and gest ational diabetes requiring medication. She was noted to be approximately 2 cm on admission. Rupture of membranes was performed by placement of scalp electrode. She had a first stage of labor 4 hours and 50 minutes. She had a second stage of labor of approximately 30 minutes delivered by spont aneous controlled vaginal delivery 7 pounds 1-ounce female over a second-degree perineal lacer ation. Infant was delivered after 1 minute delayed cord clamping. This was cut and placed on mother's upper abdomen. Cord blood was obtained. The placenta was spontaneously expelled and appea red to be intact. Intrauterine exam revealed no retained placental fragments. Laceration was repair ed in the usual fashion with 3-0 Vicryl suture. Quantitative blood loss was measured at 250 mL. She delivered with epidural anesthesia with good effect. VICKEY/DAVID Voice ID: [id number] Report ID: [id number]
[2020-06-11 19:58] LABS: HBsAG Nonreactive (Nonreactive)
--- NOTE | 2020-06-18 10:46 | DN ---
Surgeon: Demetrio Booker MD Ms. Rivas is a 39-year-old [place] female, admitted for induction of labor secondary to advanced maternal age and gestational diabetes. She had a first stage of labor 4 hours and 50 minute s after rupture of membranes and began on Pitocin. She had second stage of labor 45 minutes. She de livered by spontaneous controlled vaginal delivery, 7 pounds 1-ounce female , 9 and 9 ove r a second-degree perineal laceration. The was delivered vertex OA after delayed cord clampin g. This was clamped cut and the placed on mother's upper abdomen. Cord blood was obtained. Placenta was spontaneously expelled and appeared to be intact. She suffered a second-degree perineal laceration which was repaired in the usual fashion with 3-0 Vicryl suture. Quantitative blood loss was 250 mL. Intrauterine examination revealed no retained placental fragments. She received excelle nt benefit from the epidural catheter. VICKEY/DAVID Voice ID: [id number] Report ID: [id number]
--- NOTE | 2020-06-18 10:48 | PREOPHP ---
Date of Admission: 06/05/2020 History Of Present Illness: Ms. Rivas is 39-year-old [place] female 3, para 1-0 -1-1 at approximately 38+ weeks gestation, admitted for induction of labor secondary to gestational d iabetes and advanced maternal age. She has been followed by me during this , has been on gl yburide for her diabetes with excellent sugar control. She reports infant has been active and has be en undergoing weekly and SST evaluation since 36 weeks gestation. Past Medical History: Please see record. Family History: Please see record. Review of Systems: She denies recent cough, cold, fever, or chills. No recent nausea or vomiting. No breast knots or l umps. No bowel or bladder issues. has been active. Physical Examination: General: Reveals a pleasant female, no apparent distress. Neck: Supple without adenopathy or thyromegaly. Lungs: Clear. Cardiac: Regular rate and rhythm without murmurs. Breasts: Not examined. Abdomen: Estimated weight of approximately 6+ to 7+ pounds. Pelvic: Cervix noted to be 1+ 2 cm. Extremities: No cyanosis, clubbing, or edema. Impression: A 38+ week , advanced maternal age, gestational diabetes on oral agent. Plan: Patient will undergo induction of labor. VICKEY/DAVID Voice ID: [id number]
== END 2020-06-06 17:00 | disposition home or self-care (01) | DRG 807 ==
LOC: 2ND-WC 06-05 06:05
PROVIDERS: ADMIT Specialist; ATTEND Specialist
PROC: 10E0XZZ Delivery of Products of Conception, External Approach (ICD-10-PCS; principal; 2020-06-05)
PROC: 0KQM0ZZ Repair Perineum Muscle, Open Approach (ICD-10-PCS; 2020-06-05)
PROC: 10907ZC Drainage of Amniotic Fluid, Therapeutic from Products of Conception, Via Natural or Artificial Opening (ICD-10-PCS; 2020-06-05)
PROC: 4A1H7CZ Monitoring of Products of Conception, Cardiac Rate, Via Natural or Artificial Opening (ICD-10-PCS; 2020-06-05)
PROC: 10H073Z Insertion of Monitoring Electrode into Products of Conception, Via Natural or Artificial Opening (ICD-10-PCS; 2020-06-05)
PROC: 3E033VJ Introduction of Other Hormone into Peripheral Vein, Percutaneous Approach (ICD-10-PCS; 2020-06-05)
DX: O24.429 Gestational diabetes mellitus in childbirth, unspecified control (principal); Z37.0 Single live birth; O70.1 Second degree perineal laceration during delivery; Z3A.38 38 weeks gestation of pregnancy; Z20.828 Contact with and (suspected) exposure to other viral communicable diseases
CPT/HCPCS: 36415; 81001; 82947; 85025; 86592; 86901; 87340; J2210; J2590; J3010; J7120; U0003

== ENCOUNTER 2021-06-17 16:43 | Emergency (ER) | payer OTHER ==
[2021-06-17 17:13] LABS: Urine Blood Trace-intact (Negative); Urine Glucose Negative (Negative); Urine Protein Negative (Negative); Urine Specific Gravity 1.025 (1.005-1.030)
[2021-06-17 18:58] LABS: Urine Specific Gravity/Preg 1.025 (1.005-1.030)
--- NOTE | 2021-06-17 19:11 | RAD REPORT ---
EXAM DESCRIPTION: CT - CTFB CLINICAL HISTORY: FACIAL PAIN COMPARISON: Abdomen Pelvis W Contrast dated 05/08/2018; Abdomen Pelvis W Contrast dated 6; CT ABD PELVIS W CONTRAST dated 09/10/2015; CT ABD PELVIS W CONTRAST dated 05/08/2015; CT ABD PELVIS W CONTRAST dated 11/08/2013No comparisons TECHNIQUE: Axial 2 mm thick images of the face were obtained with sagittal and coronal reconstructio n images. All CT scans are performed using dose optimization technique as appropriate and may include automated exposure control or mA/KV adjustment according to patient size. FINDINGS: No acute facial bone fracture is seen.The mandible is intact. The globes and orbital contents are grossly unremarkable.The paranasal sinuses and mastoids are clear . IMPRESSION: Negative for facial bone fracture.
--- NOTE | 2021-06-17 19:43 | EDPHYS ---
Physician Documentation [facility] Name: Ej Rivas Age: 40 yrs Sex: Female : 1980 Arrival Date: 06/17/2021 Time: 16:45 Bed 15 Private MD: ED Physician Ariel Harrison HPI: 06/17 19:34 This 40 yrs old Female presents to ER via Ambulatory with complaints of Eye Injury - jmm Swelling. 19:34 The complaints affect the right eye and right cheek. Onset: The symptoms/episode jmm began/occurred acutely. Associated signs and symptoms: Loss of consciousness: This patient did not experience any loss of consciousness. This is a 40 year old female with no known chronic medical conditions that presents to the ED with complaints of right cheek pain after her toddler hit her head against her cheek. Denies changes in vision. . CERTIFIED SCRUB TECH: 16:55 LMP 05/28/2021 tw2 Historical: - Allergies: 16:54 No Known Allergies; tw2 - Home Meds: 16:54 None [Active]; tw2 - PMHx: 16:54 miscarriage; tw2 - PSHx: 16:54 None; tw2 - Immunization history:: Client reports having NOT received the Covid vaccine. Flu vaccine is up to date. - Social history:: Smoking status: Patient denies any tobacco usage or history of. ROS: 19:34 Constitutional: Negative for fever, chills, and weight loss, Cardiovascular: Negative jmm for chest pain, palpitations, and edema, Respiratory: Negative for shortness of breath, cough, wheezing, and pleuritic chest pain. 19:34 Eyes: Positive for pain. 19:34 All other systems are negative. Exam: 19:34 Constitutional: This is a well developed, well nourished patient who is awake, alert, jmm and in no acute distress. 19:34 Neck: Trachea midline, Supple Chest/axilla: Normal chest wall appearance and motion. Cardiovascular: Regular rate and rhythm. No edema appreciated Respiratory: Normal respirations, no respiratory distress appreciated Abdomen/GI: Non distended, soft Back: Normal ROM Skin: General appearance color normal MS/ Extremity: Moves all extremities, no obvious deformities appreciated, no edema noted to the lower extremities Neuro: Awake and alert, normal gait Psych: Behavior is normal, Mood is normal, Patient is cooperative and pleasant 19:34 Head/face: Noted is raccoon eye(s), on the right. 19:34 Eyes: Pupils: equal, round, and reactive to light and accomodation, Extraocular movements: intact throughout, Conjunctiva: normal. Vital Signs: 16:55 BP 96 / 51; Pulse 63; Resp 17; Temp 97.9; Pulse Ox 98% on R/A; Weight 52 kg; Height 5 tw2 ft. 1 in. (155 cm); Pain 3/10; 19:11 BP 99 / 59; Pulse 55; Resp 18; Pulse Ox 100% on R/A; mk 19:55 BP 100 / 67; Pulse 61; Resp 18; Temp 98.5; Pulse Ox 99% ; mk 16:55 Body Mass Index 21.64 (52.00 kg, 155 cm) tw2 Bettina Coma Score: 19:11 Eye Response: spontaneous(4). Verbal Response: oriented(5). Motor Response: obeys mk commands(6). Total: 15. 19:55 Eye Response: spontaneous(4). Verbal Response: oriented(5). Motor Response: obeys mk commands(6). Total: 15. MDM: 19:19 Patient medically screened. pradeep 19:37 Data reviewed: vital signs, radiologic studies. Counseling: I had a detailed discussion serina with the patient and/or guardian regarding: the historical points, exam findings, and any diagnostic results supporting the discharge/admit diagnosis, radiology results, the need for outpatient follow up, to return to the emergency department if symptoms worsen or persist or if there are any questions or concerns that arise at home. 06/17 17:13 Order name: Urine --Ancillary (enter results); Complete Time: 19:20 bd 06/17 17:13 Order name: Urine Dipstick-Ancillary; Complete Time: 19:20 EDMS 06/17 16:58 Order name: CT Facial Bones W/O Con; Complete Time: 19:20 iw 06/17 16:58 Order name: Urine Test (obtain specimen); Complete Time: 17:44 iw Administered Medications: No medications were administered Disposition: 06/18 08:15 Co-signature as Attending Physician, Ariel Harrison MD I agree with the assessment and kdr plan of care. Disposition Summary: 06/17/21 19:42 Discharge Ordered Location: Home jmm Condition: Stable jmm Diagnosis - Contusion of the Right Cheek jmm Followup: jmm - With: Private Physician - When: 2 - 3 days - Reason: Recheck today's complaints, Continuance of care, Re-evaluation by your physician Discharge Instructions: - Discharge Summary Sheet jmm - Facial or Scalp Contusion jmm Forms: - Medication Reconciliation Form jmm - Thank You Letter jmm - Antibiotic Education jmm - Prescription Opioid Use jmm Signatures: Dispatcher [employer] EDAriel Hernandez MD MD kdr Mickail, Joel, PA PA jmm Williams, Irene RN RN iw Melani Gordon RN RN tw2
--- NOTE | 2021-06-17 19:43 | ER ---
Nurse's Notes [facility] Name: Ej Rivas Age: 40 yrs Sex: Female : 1980 Arrival Date: 06/17/2021 Time: 16:45 Bed 15 Private MD: Diagnosis: Contusion of the Right Cheek Presentation: 06/17 16:52 Chief complaint: Patient states: my 1 year daughter threw her head back into my right tw2 eye and there is pain in my cheek bone. this happen about 2 pm today. Coronavirus screen: At this time, the client does not indicate any symptoms associated with coronavirus-19. Ebola Screen: Patient denies travel to an Ebola-affected area in the 21 days before illness onset. 16:52 Method Of Arrival: Ambulatory tw2 16:56 Initial Sepsis Screen: Does the patient meet any 2 criteria? No. Patient's initial tw2 sepsis screen is negative. Does the patient have a suspected source of infection? No. Patient's initial sepsis screen is negative. Risk Assessment: Do you want to hurt yourself or someone else? Patient reports no desire to harm self or others. Onset of symptoms was June 17, 2021. 16:56 Acuity: EDWIN 4 tw2 Triage Assessment: 16:54 General: Appears in no apparent distress. slender, well groomed, Behavior is calm, tw2 cooperative, appropriate for age. Pain: Complains of pain in right eye and right cheek. EENT: bruising noted to right eye. 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 Flu vaccine is up to date. - Social history:: Smoking status: Patient denies any tobacco usage or history of. Screenin:44 Abuse screen: Denies threats or abuse. Nutritional screening: No deficits noted. tw2 Tuberculosis screening: No symptoms or risk factors identified. Fall Risk None identified. Assessment: 19:05 Pain: Complains of pain in face and right eye Pain currently is 5 out of 10 on a pain mk scale. Quality of pain is described as aching, Pain began. Neuro: Level of Consciousness is awake, alert, obeys commands, Oriented to person, place, time, situation, Bandmill Operator are equal bilaterally Moves all extremities. Neuro: Facial symmetry appears normal, Pupils are PERRLA, Intact Denies LOC. Cardiovascular: Heart tones S1 S2 Capillary refill < 3 seconds Patient's skin is warm and dry. Pulses are 2+ in right radial artery, right dorsalis pedis artery, left radial artery and left dorsalis pedis artery. GI: Bowel sounds present X 4 quads. Abd is soft and non tender. : No signs and/or symptoms were reported regarding the genitourinary system. Derm: Skin is intact, is healthy with good turgor, Skin is Skin is pink, warm \T\ dry. Skin temperature is warm. Musculoskeletal: Range of motion: intact in all extremities. Injury Description: Head injury sustained to right eye is closed, did not have loss of consciousness, contusion Bruise sustained to right eye. Vital Signs: 16:55 BP 96 / 51; Pulse 63; Resp 17; Temp 97.9; Pulse Ox 98% on R/A; Weight 52 kg; Height 5 tw2 ft. 1 in. (155 cm); Pain 3/10; 19:11 BP 99 / 59; Pulse 55; Resp 18; Pulse Ox 100% on R/A; mk 19:55 BP 100 / 67; Pulse 61; Resp 18; Temp 98.5; Pulse Ox 99% ; mk 16:55 Body Mass Index 21.64 (52.00 kg, 155 cm) tw2 Vitals: 19:11 Cardiac Rhythm Assessment Regular Sinus haseeb. mk Bettina Coma Score: 19:11 Eye Response: spontaneous(4). Verbal Response: oriented(5). Motor Response: obeys mk commands(6). Total: 15. 19:55 Eye Response: spontaneous(4). Verbal Response: oriented(5). Motor Response: obeys mk commands(6). Total: 15. ED Course: 16:45 Patient arrived in ED. ds1 16:54 Arm band placed on. tw2 16:56 Triage completed. 2 18:30 [facility] 18:30 Ariel Harrison MD is Attending Physician. [facility] 19:00 CT Facial Bones W/O Con In Process Unspecified. EDDC 19:07 Roxanne Barney, RN is Primary Nurse. 19:54 dc with data miner Silvia Montez. 19:58 No provider procedures requiring assistance completed. 19:58 Patient did not have IV access during this emergency room visit. Administered Medications: No medications were administered Outcome: 19:42 Discharge ordered by MD. [facility] 19:58 Discharged to home 19:58 Condition: stable 19:58 Discharge instructions given to patient. 19:58 Patient left the ED. Signatures: Dispatcher [employer] EDDC Enio Boo PA PA [facility] Noemi Lou ds1 Melani Gordon, RN RN tw2 Roxanne Barney, RN RN
[2021-06-17 20:25] VITALS: BP 100/67; TEMP 98.5; O2SAT 99
== END 2021-06-17 19:58 | disposition home or self-care (01) ==
LOC: ER 16:43
DX: S00.83XA Contusion of other part of head, initial encounter (principal); W50.0XXA Accidental hit or strike by another person, initial encounter
CPT/HCPCS: 70486; 76377; 81003; 81025; 99283